=== PATIENT | male | born 1990 | race Hispanic/Latino ===

== ENCOUNTER 2017-06-20 10:29 | Emergency (ER) | payer SELFPAY ==
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
== END 2017-06-20 11:15 | disposition home or self-care (01) ==
LOC: SCSER 10:29
DX: S80.02XA Contusion of left knee, initial encounter (principal); S80.211A Abrasion, right knee, initial encounter; I10 Essential (primary) hypertension; V89.2XXA Person injured in unspecified motor-vehicle accident, traffic, initial encounter
CPT/HCPCS: 70450

== ENCOUNTER 2018-04-06 00:43 | Emergency (ER) | payer OTHER, SELFPAY ==
[2018-04-06] MEDS ORDERED: Ondansetron ODT 4 MG TAB ONE (00:57)
[2018-04-06] MEDS ORDERED: Prochlorperazine 10 MG/2 ML VIAL ONE (00:57)
[2018-04-06] MEDS ORDERED: Ketorolac Tromethamine 60 MG/2 ML VIAL ONE (00:57)
[2018-04-06] MEDS ORDERED: Oseltamivir 75 MG CAP ONE (01:25)
== END 2018-04-06 01:27 | disposition home or self-care (01) ==
LOC: SCSER 00:43
DX: J11.1 Influenza due to unidentified influenza virus with other respiratory manifestations (principal); I10 Essential (primary) hypertension
CPT/HCPCS: 96372; J0780; J1885; Q0162

== ENCOUNTER 2018-08-07 09:27 | Emergency (ER) | payer SELFPAY ==
[~2018-08-07 09:27] MED LIST: Iopamidol 370 76% 100 ML VIAL ONE
[2018-08-07] MEDS ORDERED: Ondansetron PF 4 MG/2 ML Vial ONE (09:48)
[2018-08-07 10:15] LABS: #Basophils 0.1 thou/uL (0.0-0.2); #Lymphocytes 0.9 thou/uL (1.20-3.40); #Monocytes 0.6 thou/uL (0.11-0.59); #Neutrophils 8.3 thou/uL (1.40-6.50); %Basophils 0.7 % (0.0-1.0); %Eosinophils 0.2 % (0.0-10.0); %Lymphocytes 8.7 % (21.0-51.0); %Monocytes 5.7 % (0.0-10.0); %Neutrophils 84.7 % (42.0-75.0); Hemoglobin 20.4 g/dL (14.0-18.0); Mean Corpuscular Hemoglobin 31.3 pg (27.0-31.0); Mean Corpuscular Volume 91.9 fL (78.0-98.0); Mean Platelet Volume 7.5 fL (7.4-10.4); Platelet Count 213 thou/uL (130-400); RBC Distribution Width 11.8 % (11.5-14.5); Red Blood Cell (RBC) Count 6.54 mill/uL (4.70-6.10); White Blood Cell (WBC) Count 9.9 thou/uL (4.8-10.8)
[2018-08-07 10:17] LABS: ALT (SGPT) 18 U/L (8-55); AST (SGOT) 16 U/L (5-34); Albumin 4.7 g/dL (3.5-5.0); Alkaline Phosphatase 121 U/L (40-150); Anion Gap 15 mmol/L (10-20); BUN (Urea Nitrogen) 10 mg/dL (8.9-20.6); Bilirubin, Total 0.4 mg/dL (0.2-1.2); Calc. Creatinine Clearance 0 mL/min (70-130); Calcium 9.9 mg/dL (7.8-10.44); Carbon Dioxide 22 mmol/L (22-29); Chloride 105 mmol/L (98-107); Estimated GFR-MDRD 86; Globulin 3.4 g/dL (2.4-3.5); Glucose 114 mg/dL (70-105); Potassium 3.7 mmol/L (3.5-5.1); Protein, Total 8.1 g/dL (6.0-8.3); Sodium 138 mmol/L (136-145)
--- NOTE | 2018-08-07 10:52 | CT ---
CT ABDOMEN AND PELVIS WITH CONTRAST: Date: 08/07/18 HISTORY: Abdominal pain with nausea and vomiting. Patient feels like he needs to have a bowel movement. TECHNIQUE: Multiple contiguous axial images were obtained in a CT of the abdomen and pelvis with contrast. Coron al reformats were performed. FINDINGS: The liver, gallbladder, kidneys, adrenal glands, spleen, and pancreas are unremarkable. No free air, free fluid, or stranding changes are seen in the abdomen or pelvis. The large and small bowel are unremarkable. The appendix is normal. No abdominal or pelvic lymphadeno marie are seen. The osseous structures, visualized inferior thorax, and abdominal wall soft tissues are unremarkable. IMPRESSION: No evidence of acute intra-abdominal/pelvic abnormality. POS: [facility]
== END 2018-08-07 11:11 | disposition home or self-care (01) ==
LOC: SCSER 09:27
DX: E86.0 Dehydration (principal); R79.89 Other specified abnormal findings of blood chemistry; I10 Essential (primary) hypertension
CPT/HCPCS: 74177; 80053; 85025; 96361; 96374; J2405; Q9967

== ENCOUNTER 2018-08-09 15:39 | Observation (INO) | payer SELFPAY ==
[2018-08-09] MEDS ORDERED: Ketorolac Tromethamine 30 MG/ML VIAL ONE (16:04)
[2018-08-09] MEDS ORDERED: Ondansetron PF 4 MG/2 ML Vial ONE (16:04)
[2018-08-09 16:19] LABS: #Basophils 0.2 thou/uL (0.0-0.2); #Eosinphils 0.1 thou/uL (0.0-0.7); #Lymphocytes 1.5 thou/uL (1.20-3.40); #Monocytes 1.2 thou/uL (0.11-0.59); #Neutrophils 10.7 thou/uL (1.40-6.50); %Basophils 1.4 % (0.0-1.0); %Eosinophils 0.4 % (0.0-10.0); %Lymphocytes 10.8 % (21.0-51.0); %Monocytes 8.6 % (0.0-10.0); %Neutrophils 78.9 % (42.0-75.0); Hemoglobin 18.8 g/dL (14.0-18.0); Mean Corpuscular HGB CONC 34.4 g/dL (32.0-36.0); Mean Corpuscular Hemoglobin 31.1 pg (27.0-31.0); Mean Corpuscular Volume 90.2 fL (78.0-98.0); Mean Platelet Volume 8.2 fL (7.4-10.4); Platelet Count 223 thou/uL (130-400); RBC Distribution Width 11.6 % (11.5-14.5); Red Blood Cell (RBC) Count 6.05 mill/uL (4.70-6.10); White Blood Cell (WBC) Count 13.6 thou/uL (4.8-10.8)
[2018-08-09 16:35] LABS: ALT (SGPT) 12 U/L (8-55); AST (SGOT) 14 U/L (5-34); Albumin 4.3 g/dL (3.5-5.0); Alkaline Phosphatase 97 U/L (40-150); Anion Gap 14 mmol/L (10-20); BUN (Urea Nitrogen) 9 mg/dL (8.9-20.6); Bilirubin, Total 0.4 mg/dL (0.2-1.2); Calc. Creatinine Clearance 0 mL/min (70-130); Calcium 9.5 mg/dL (7.8-10.44); Carbon Dioxide 24 mmol/L (22-29); Chloride 103 mmol/L (98-107); Estimated GFR-MDRD Greater than 90; Glucose 104 mg/dL (70-105); Lipase 14 U/L (8-78); Potassium 3.6 mmol/L (3.5-5.1); Protein, Total 7.3 g/dL (6.0-8.3); Sodium 137 mmol/L (136-145)
--- NOTE | 2018-08-09 17:22 | CT ---
Contrast-enhanced images abdomen pelvis. HISTORY: Ongoing right lower quadrant pain. Contrast-enhanced images of the abdomen and pelvis obtained after administration of IV contrast. Unfo rtunately oral contrast again was not given. This would help with evaluation of GI pathology. The lung bases are unremarkable. No evidence of free intraperitoneal air seen. The liver and spleen are unremarkable. The gallbladder and pancreas unremarkable. Adrenal glands and kidneys unremarkable. The proximal and mid small bowel is unremarkable. There is abnormal thickening and enhancement of the distal small bowel. There is a this is concerning for inflammatory process in the ileum. There is abnormal thickening of the cecum descending colon and diffusely involving the rest of the co gail. This may represent ileitis and colitis correlate with direct visualization. The degree of colonic thickening has increased since the previous comparison CT from 2 days earlier. IMPRESSION: Abnormal thickening of the distal small bowel concerning for ileitis. There is also abnor mal thickening of the colon concerning for colitis. Inflammatory process such as Crohn's disease or ulcerative colitis cannot be excluded.
[2018-08-09] MEDS ORDERED: Piperacillin/Tazobactam 3.375 GM VIAL ONE (17:28)
[2018-08-09] MEDS ORDERED: Sodium Chloride 0.9% 100 ML ONE (17:29)
[2018-08-09 18:40] LABS: Bilirubin Negative (Negative); Blood, Urine Negative (Negative); Clarity Clear (Clear); Glucose, Urine (Dipstick) Negative (Negative); Leukocyte Negative (Negative); Nitrite Negative (Negative); Protein, Urine (Dipstick) Negative (Neg-Trace); Urobilinogen 0.2 mg/dL (0.2-1.0)
[2018-08-09 18:41] LABS: Specific Gravity, Urine Greater than 1.035 (1.002-1.036)
[2018-08-09] MEDS ORDERED: Acetaminophen 325 MG TAB PO PRN (19:06)
[2018-08-09] MEDS ORDERED: Ondansetron PF 4 MG/2 ML Vial IVP PRN (19:06)
[2018-08-09] MEDS ORDERED: Ondansetron ODT 4 MG TAB SL PRN (19:06)
[2018-08-09] MEDS ORDERED: Morphine 2 MG/ML SYRINGE SLOW IVP PRN (19:09)
[2018-08-09] MEDS ORDERED: Ketorolac Tromethamine 15 MG/ML VIAL IVP PRN (19:09)
[2018-08-09 19:28] VITALS: BMI 30.5
[2018-08-09] MEDS: D5 1/2 NS w/20 mEq KCL 1,000 ML IV SCH (20:15)
[2018-08-09] MEDS ORDERED: HYDROcodone/Acetaminophen 7.5/325 mg Tablet PO PRN (21:24)
[2018-08-09] MEDS ORDERED: Morphine 4 MG/ML VIAL SLOW IVP PRN ×2 (21:44→21:46)
[2018-08-09] MEDS: Ketorolac Tromethamine 30 MG/ML VIAL IVP PRN (22:42)
[2018-08-09] MEDS: Sodium Chloride 0.9% 1,000 ML IV SCH (22:45)
[2018-08-09] MEDS: metroNIDAZOLE 500 MG in Premix Bag 1 BAG IVPB SCH (22:45)
--- NOTE | 2018-08-10 01:26 | HP ---
HISTORY OF PRESENT ILLNESS: This is a 27-year-old male, who presents with a 2-day to 3-day history of acute onset of abdominal pain. The patient states 2 days prior on Monday, he had fried chicken and canned corn from [employer]. At that point, that evening, he developed abdominal pain with nausea and vomiting. He presented to the ER and a CT scan of the abdomen was found to be negative. Labs were also unremarkable. He was treated for dehydration and sent home. His abdominal pain persisted with increasing nausea and vomiting. He then again reported to the ER this evening and repeat CT scan showed inflammation of the ileum and proximal part of the colon consistent with ileal colitis. The patient states that he has had initially a fever, but his fever has resolved. He complains of severe abdominal pain requiring pain medicines. Incidentally in 2011, he had a similar episode and a CT scan revealed possible diverticulitis, but not conclusive. He was treated with antibiotics at that time. PAST MEDICAL HISTORY: Hypertension, possible history of diverticulitis in 2011, hypertension, morbid obesity, esophageal reflux, shingles 2011. PAST SURGICAL HISTORY: None. MEDICATIONS: None. FAMILY HISTORY: Father at 50 from an SD and hypertension. Maternal grandfather with lung cancer. Maternal uncles with lung cancer. They were all smokers. Paternal grandmother with coronary artery disease, diabetes and heart disease. SOCIAL HISTORY: He is single. He lives with his mother. He smokes a half pack per day x10 years plus since he was 19 years old. He admits to being on a very poor diet. Mother states that he will eat the skin off the chicken and not eat the meat. He works at [employer], which makes matters worse. ALLERGIES: NONE. REVIEW OF SYSTEMS: As above. PHYSICAL EXAMINATION: VITAL SIGNS: Temperature 98.3, pulse 80, respirations 18, pulse oximetry 99% and blood pressure 130/87. GENERAL: The patient is in moderate distress from abdominal pain. HEENT: Clear. NECK: Supple. HEART: Regular rhythm LUNGS: Clear. ABDOMEN: With diffuse tenderness, worse left lower quadrant. EXTREMITIES: With no edema. LABORATORY DATA: White count 13.6, H and H 18 and 54, platelets 223. Electrolytes normal. Creatinine 1, BUN 9, glucose 104. Liver function tests normal. Urine positive for 1+ ketones. CT abdomen with possible ileal colitis. ASSESSMENT: 1. Abdominal pain. 2. Dehydration with intractable nausea and vomiting. 3. Ileal colitis, rule out Crohn disease, infection, diverticulitis. 4. Polycythemia, possibly related to tobacco use, polycythemia vera or dehydration. 5. Morbid obesity. 6. Tobacco abuse. 7. Poor diet. PLAN: 1. Hydrate. 2. IV pain medicines and antiemetics. 3. Stool studies for O and P. GI can order connor protection if indicated. Unable to find on the electronic orders. 4. Consult GI, Dr. Hernandes notified. 5. CBC, comprehensive in a.m. 6. The patient needs to stop tobacco and begin a diet and exercise program. 7. We will begin treatment for diverticulitis to include Cipro 400 IV q.12h. and Flagyl 500 IV q.8h. 8. We will continue to follow. Job ID: [id number]
[2018-08-10] MEDS: Ketorolac Tromethamine 30 MG/ML VIAL IVP PRN ×2 (05:24→22:00)
[2018-08-10] MEDS: metroNIDAZOLE 500 MG in Premix Bag 1 BAG IVPB SCH ×3 (05:27→21:56)
[2018-08-10 06:51] LABS: #Basophils 0.2 thou/uL (0.0-0.2); #Eosinphils 0.1 thou/uL (0.0-0.7); #Lymphocytes 1.4 thou/uL (1.20-3.40); #Monocytes 1.6 thou/uL (0.11-0.59); %Basophils 1.3 % (0.0-1.0); %Eosinophils 0.4 % (0.0-10.0); %Lymphocytes 9.7 % (21.0-51.0); %Monocytes 11.1 % (0.0-10.0); %Neutrophils 77.5 % (42.0-75.0); ALT (SGPT) 10 U/L (8-55); AST (SGOT) 12 U/L (5-34); Albumin 3.6 g/dL (3.5-5.0); Alkaline Phosphatase 84 U/L (40-150); Anion Gap 12 mmol/L (10-20); BUN (Urea Nitrogen) 7 mg/dL (8.9-20.6); Bilirubin, Total 0.4 mg/dL (0.2-1.2); Calc. Creatinine Clearance 176 mL/min (70-130); Calcium 8.7 mg/dL (7.8-10.44); Carbon Dioxide 22 mmol/L (22-29); Chloride 107 mmol/L (98-107); Estimated GFR-MDRD Greater than 90; Globulin 2.7 g/dL (2.4-3.5); Glucose 92 mg/dL (70-105); Hemoglobin 16.6 g/dL (14.0-18.0); Mean Corpuscular HGB CONC 34.1 g/dL (32.0-36.0); Mean Corpuscular Hemoglobin 31.8 pg (27.0-31.0); Mean Corpuscular Volume 93.2 fL (78.0-98.0); Mean Platelet Volume 7.8 fL (7.4-10.4); Platelet Count 195 thou/uL (130-400); Potassium 3.6 mmol/L (3.5-5.1); Protein, Total 6.3 g/dL (6.0-8.3); Sodium 137 mmol/L (136-145); White Blood Cell (WBC) Count 14.1 thou/uL (4.8-10.8)
--- NOTE | 2018-08-10 08:47 | PRG ---
DATE OF SERVICE: 08/10/2018 SUBJECTIVE: The patient is feeling much better this morning. His abdominal pain is improved. He is having increased diarrheal brown loose stools. OBJECTIVE: VITAL SIGNS: Temperature 98.4, pulse 71, respirations 12, pulse ox 98, and blood pressure 126/67. HEART: Regular rate and rhythm. LUNGS: Clear. ABDOMEN: Soft. Decreased tenderness, most tenderness localized to left lower quadrant. EXTREMITIES: With no edema. LABORATORY DATA: White count is 14.1, H and H of 16 and 48. Electrolytes normal. Creatinine 0.85, BUN 7. ASSESSMENT: 1. Abdominal pain, improved. 2. Dehydration, improving with IV hydration. 3. Ileocolitis, stable. Must rule out diverticulitis. The patient is having more diarrhea, which is not as consistent with diverticulitis. Must rule out Crohn disease. Stool studies are pending. Polycythemia improved. 4. Morbid obesity. 5. Tobacco abuse. 6. Poor diet. PLAN: 1. Continue hydration. 2. Continue IV antibiotics. 3. Stool studies pending. 4. GI to see. Job ID: [id number]
[2018-08-10] MEDS: Pantoprazole 40 MG VIAL IVP SCH ×2 (09:04→20:02)
[2018-08-10] MEDS: Enoxaparin Sodium 40 MG/0.4 ML SYRINGE SC SCH (09:04)
[2018-08-10] MEDS: D5 1/2 NS w/20 mEq KCL 1,000 ML IV SCH (10:04)
[2018-08-10 10:42] LABS: Ref Lab Test Ordered CALPROTECTIN; Reference Lab Name LABCORP
[2018-08-10] MEDS: Sodium Chloride 0.9% 1,000 ML IV SCH ×2 (11:19→20:01)
[2018-08-10] MEDS ORDERED: GoLYTELY 4,000 ml Bottle PO SCH (20:30)
--- NOTE | 2018-08-11 02:04 | CON ---
DATE OF CONSULTATION: 08/10/2018 CHIEF COMPLAINT: Abdominal pain. HISTORY OF PRESENT ILLNESS: Mr. Dunham is a 27-year-old man who presented to the emergency room with abdominal pain. He developed sharp periumbilical abdominal pain that was continuous on Monday. He had some nausea, vomiting, and diarrhea associated with that. He went to the emergency room and was noted to be hemoconcentrated and had a CT scan of the abdomen and pelvis. He was given IV fluids and discharged home. The pain continued and worsened over the next 2 days. For the pain, he started taking ibuprofen 4 tablets at a time every 6-8 hours. When he returned to the emergency room yesterday, his white blood cell count had increased and he had a repeat CT scan performed. At this time, the CT scan showed abnormal thickening of the small bowel, cecum and descending colon. He has had no blood in the stool. He reports chronic diarrhea at baseline. He has 3 or 4 liquidy stools daily at baseline. He has had some reflux symptoms over the last week and has been taking some [id number] ranitidine for that, which really had not helped much. Around 4 years ago, he was empirically treated with antibiotics for what he was told was diverticulitis. His weight has been stable. He has had no fevers, no skin, joint, or eye complaints. PAST MEDICAL HISTORY: Otherwise negative. He did have shingles a few years ago over his abdomen. FAMILY HISTORY: Negative for GI malignancy or inflammatory bowel disease. PAST SURGICAL HISTORY: Negative. HABITS: He smokes a pack every couple of weeks. No alcohol or drugs. ALLERGIES: NO KNOWN DRUG ALLERGIES. MEDICATIONS: Prior to admission, ibuprofen and ranitidine. REVIEW OF SYSTEMS: Negative x10 systems reviewed except as stated in history of present illness. PHYSICAL EXAMINATION: VITAL SIGNS: Temperature 98.6, pulse 84, blood pressure 120/64. GENERAL: He is in no acute distress. Alert and oriented x3. HEENT: Eyes have no scleral icterus. Oropharynx is clear without lesions. NECK: No cervical or supraclavicular lymphadenopathy. LUNGS: Clear to auscultation bilaterally. HEART: Regular rate and rhythm without murmur. ABDOMEN: Soft. Mild tenderness in the periumbilical region without guarding. Bowel sounds are present. EXTREMITIES: No lower extremity edema. NEUROLOGIC: Cranial nerves are grossly intact. LABORATORY DATA: White blood cell count 14.1 today, hemoglobin today is 16.6; however, this is down from 20.4 on 08/07/2018, platelets 195. Creatinine 0.85, bilirubin 0.4, albumin 3.6, lipase is 14 on presentation. IMPRESSION: 1. Acute enterocolitis, presenting with fever, abdominal pain and diarrhea. This would most likely be an acute infectious colitis. However, he does report baseline history of diarrhea with 3 or 4 stools per day, which could point to a more chronic colitis. He had a stool culture and stool for Campylobacter that were negative. The lactoferrin was elevated. Other possibilities would be ischemic colitis given the polycythemia and acute inflammatory changes in the right colon and distal small bowel. Crohn's disease is certainly possible; however, would not have expected an acute change in the CT scan from Monday to in the setting of chronic inflammatory bowel disease. RECOMMENDATIONS: We will plan for colonoscopy tomorrow. He will receive a bowel prep this evening. Job ID: [id number]
[2018-08-11] MEDS: Sodium Chloride 0.9% 1,000 ML IV SCH ×4 (04:52→20:56)
[2018-08-11] MEDS: metroNIDAZOLE 500 MG in Premix Bag 1 BAG IVPB SCH ×3 (05:55→22:02)
[2018-08-11] MEDS: Pantoprazole 40 MG VIAL IVP SCH (08:23)
[2018-08-11] MEDS: Enoxaparin Sodium 40 MG/0.4 ML SYRINGE SC SCH (08:23)
[2018-08-11] MEDS ORDERED: Promethazine HCl 25 MG/ML VIAL IM PRN (11:15)
[2018-08-11] MEDS ORDERED: Promethazine HCl 25 MG/ML VIAL SLOW IVP PRN (11:15)
[2018-08-11] MEDS ORDERED: Ondansetron HCl/PF 4 MG/2 ML Vial IVP PRN (11:15)
[2018-08-11] MEDS ORDERED: PROPOFOL 200 MG/20 ML VIAL ONE (16:30)
--- NOTE | 2018-08-11 20:32 | OP ---
DATE OF PROCEDURE: 08/10/2018 PROCEDURE PERFORMED: Colonoscopy with biopsy. PREOPERATIVE DIAGNOSES: Diarrhea, abdominal pain, and abnormal CT scan showing inflammatory changes of the small bowel and colon. DESCRIPTION OF PROCEDURE: Informed consent was obtained from the patient. He was sedated with total intravenous anesthesia. The rectal exam was performed and was normal. The preparation quality was fair. The colonoscope was advanced to the terminal ileum without difficulty. There was severe ulceration of the terminal ileum with intermittent ulcerations. This is most consistent with Crohn's in this area, however, still an infectious source is possible. Biopsies were obtained. The ascending, transverse, and descending colon appeared unremarkable overall. Biopsies were obtained from these areas. The sigmoid colon from the rectum all the way up to 30 cm had colitis with patchy erythema and some erosions, which appear more consistent with an acute colitis. Biopsies were obtained segmentally. IMPRESSION: 1. Multiple ulcerations in the terminal ileum, biopsied. This is suggestive of Crohn's, but infectious source is still possible. 2. Patchy erythema with few erosions in the rectum and sigmoid confluent to 30 cm. This appears to be more of an acute colitis in this area. 3. The colon from the descending to the transverse and ascending and cecum appeared unremarkable overall. Segmental biopsies were obtained. RECOMMENDATIONS: 1. Await histopathology. 2. Continue ciprofloxacin and metronidazole. 3. Advance diet. 4. We will hold steroids until the pathology results are back. Job ID: [id number]
[2018-08-12] MEDS: metroNIDAZOLE 500 MG in Premix Bag 1 BAG IVPB SCH (05:03)
[2018-08-12 07:37] VITALS: BP 154/92; TEMP 98.4
[2018-08-12] MEDS: Sodium Chloride 0.9% 1,000 ML IV SCH (08:05)
[2018-08-12 08:08] LABS: #Eosinphils 0.1 thou/uL (0.0-0.7); #Lymphocytes 2.1 thou/uL (1.20-3.40); #Monocytes 1.1 thou/uL (0.11-0.59); %Basophils 0.2 % (0.0-1.0); %Eosinophils 0.8 % (0.0-10.0); %Lymphocytes 18.8 % (21.0-51.0); %Monocytes 9.8 % (0.0-10.0); %Neutrophils 70.3 % (42.0-75.0); Hemoglobin 17.4 g/dL (14.0-18.0); Mean Corpuscular HGB CONC 34.3 g/dL (32.0-36.0); Mean Corpuscular Hemoglobin 31.7 pg (27.0-31.0); Mean Corpuscular Volume 92.5 fL (78.0-98.0); Mean Platelet Volume 7.6 fL (7.4-10.4); Platelet Count 235 thou/uL (130-400); RBC Distribution Width 11.8 % (11.5-14.5); Red Blood Cell (RBC) Count 5.48 mill/uL (4.70-6.10); White Blood Cell (WBC) Count 11.3 thou/uL (4.8-10.8)
[2018-08-12] MEDS: Enoxaparin Sodium 40 MG/0.4 ML SYRINGE SC SCH (08:45)
--- NOTE | 2018-08-12 08:57 | PRG ---
DATE OF SERVICE: 08/11/2018 SUBJECTIVE: The patient is feeling much better. Denies significant pain, much improved. Stools are becoming more formed. No fevers, chills. Appetite is good. He is wanting to go home, but agrees with having colonoscopy. OBJECTIVE: VITAL SIGNS: Temperature 98.1, pulse of 80, respirations 16, blood pressure 141/87. GENERAL: He is awake and alert, no acute distress. Speech is clear. Mucosa is moist. NECK: Supple. HEART: Regular rate and rhythm. LUNGS: Clear. ABDOMEN: With positive bowel sounds. Soft, nontender, and nondistended. LABORATORY DATA: Reviewed. White blood cell count 14.1, hemoglobin and hematocrit 16.6 and 48.5, and platelets of 195. Sodium 137, potassium 3.6, chloride 107, CO2 of 22, BUN and creatinine 7 and 0.85. Liver enzymes are all normal. ASSESSMENT AND PLAN: This is a 27-year-old gentleman admitted with colitis of uncertain etiology. He is planned a colonoscopy on this day with further plans following that results. Stool cultures are pending. Await final report. Job ID: [id number]
--- NOTE | 2018-08-12 11:39 | PRG ---
DATE OF SERVICE: 08/12/2018 SUBJECTIVE: Mr. Dunham is feeling much better. No abdominal pain. Diarrhea is improving. OBJECTIVE: VITAL SIGNS: Temperature 98.4, pulse 78, blood pressure 154/92. GENERAL: He is in no acute distress. Alert and oriented x3. LUNGS: Clear to auscultation bilaterally. HEART: Regular rate and rhythm without murmur. ABDOMEN: Soft, nontender, nondistended. Bowel sounds are present. EXTREMITIES: No lower extremity edema. LABORATORY DATA: White blood cell count 11.3, hemoglobin 17.4, platelets 235. Creatinine 0.85. IMPRESSION: Shigella enterocolitis. RECOMMENDATIONS: 1. We will await histopathology from the biopsies yesterday. The Shigella certainly would explain the findings on colonoscopy yesterday. 2. Complete a 3-day course of ciprofloxacin. 3. 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 4. Follow up with GI as needed. Job ID: [id number]
--- NOTE | 2018-08-12 19:06 | DIS ---
DATE OF ADMISSION: 08/09/2018 DATE OF DISCHARGE: 08/12/2018 ADMISSION DIAGNOSES: Abdominal pain, diarrhea, fevers. DISCHARGE DIAGNOSES: Colitis, Crohn's versus infectious. PROCEDURES: IV antibiotics, colonoscopy, CT abdomen and pelvis. CONSULTATIONS: Dr. Hernandes for Gastroenterology. HOSPITAL COURSE: This is a 27-year-old gentleman, prior history of high blood pressure, presented to emergency department with abdominal pain, nausea, and vomiting, some diarrhea, fever initially, but had resolved. He states that the episode started 1 to 2 days after eating fried chicken and canned corn from [employer]. He does have a history of diverticulitis in 2011. As he admitted, started on broad-spectrum antibiotics including IV Cipro and Flagyl empirically. Dr. Hernandes was consulted. Reviewed CT scan from the emergency department, which did reveal some abnormal thickening in the small bowel, concerning for ileitis and thickening of the colon concerning for colitis. The patient underwent a colonoscopy with no complication. The colonoscopy did reveal multiple ulcerations consistent with skip lesions, possibly from Crohn's colitis versus infectious colitis. Biopsies are pending at this time and further plans per Dr. Hernandes. PHYSICAL EXAMINATION: VITAL SIGNS: Temperature 98.4, which is a T-max, pulse of 82, respirations 18, blood pressure 137/78, pulse ox 98% on room air. GENERAL: He is awake and alert. Eating with no difficulty. Mucosa is moist. NECK: Supple. HEART: Regular rate and rhythm. LUNGS: Clear. ABDOMEN: Positive bowel sounds. Soft, nontender, and nondistended. No hepatosplenomegaly. LABORATORY DATA: White blood cell count down to 11,300 from 14,100 yesterday. Hemoglobin and hematocrit 17.4 and 50.6, and platelets of 235. Stool cultures preliminary is positive for shigella group, negative for E coli, negative for Campylobacter. Blood cultures are negative. ASSESSMENT AND PLAN: This is a 27-year-old gentleman with acute colitis status post colonoscopy with ulcerations and positive Shigella in his stool. I will continue antibiotics at this time. Await further plan per Gastroenterology. Hopefully home later today with close followup with Dr. Hernandes and myself. Job ID: [id number]
[2018-08-15 12:11] LABS: Routine O & P Final report (.)
== END 2018-08-12 10:56 | disposition home or self-care (01) ==
LOC: SCSER 15:39 → 2SW 19:02
PROVIDERS: ADMIT Family Medicine; ATTEND Internal Medicine Gastroenterology
PROC: 0DBK8ZX Excision of Ascending Colon, Via Natural or Artificial Opening Endoscopic, Diagnostic (ICD-10-PCS; principal; 2018-08-12)
PROC: 0DBL8ZX Excision of Transverse Colon, Via Natural or Artificial Opening Endoscopic, Diagnostic (ICD-10-PCS; 2018-08-12)
PROC: 0DBN8ZX Excision of Sigmoid Colon, Via Natural or Artificial Opening Endoscopic, Diagnostic (ICD-10-PCS; 2018-08-12)
PROC: 0DBP8ZX Excision of Rectum, Via Natural or Artificial Opening Endoscopic, Diagnostic (ICD-10-PCS; 2018-08-12)
PROC: 0DBB8ZX Excision of Ileum, Via Natural or Artificial Opening Endoscopic, Diagnostic (ICD-10-PCS; 2018-08-12)
PROC: 0DBM8ZX Excision of Descending Colon, Via Natural or Artificial Opening Endoscopic, Diagnostic (ICD-10-PCS; 2018-08-12)
DX: A03.9 Shigellosis, unspecified (principal); K63.3 Ulcer of intestine; K62.89 Other specified diseases of anus and rectum; E86.0 Dehydration; D75.1 Secondary polycythemia; I10 Essential (primary) hypertension; K21.9 Gastro-esophageal reflux disease without esophagitis; E66.01 Morbid (severe) obesity due to excess calories; F17.210 Nicotine dependence, cigarettes, uncomplicated; F17.290 Nicotine dependence, other tobacco product, uncomplicated; Z68.30 Body mass index [BMI] 30.0-30.9, adult; Z79.2 Long term (current) use of antibiotics
CPT/HCPCS: 36415; 74177; 80053; 81003; 83605; 83630; 83690; 85025; 87040; 87045; 87046; 87077; 87177; 87186; 87449; 87899; 88305; 96361; 96365; 96366; 96367; 96372; 96375; 96376; C9113; G0378; J0744; J1650; J1885; J2270; J2405; J2543; J2704; J3480; J3490; J7042; Q9967